=== PATIENT | male | born 1975 | race African-American/Black ===

== ENCOUNTER 2017-09-12 17:31 | Emergency (ER) | payer SELFPAY ==
[2017-09-12] MEDS: IPRATRPIUM/ALBUTEROL 0.5/2.5MG 3 ML NEBU. NEB ×4 (18:19→18:33)
[2017-09-12] MEDS: predniSONE 20 MG TABLET PO ×2 (18:38)
[2017-09-12 18:48] LABS: INFLUENZA A PATIENT NEGATIVE (NEGATIVE); INFLUENZA B PATIENT NEGATIVE (NEGATIVE); OBC FLU VALID
== END 2017-09-12 19:21 | disposition home or self-care (01) ==
LOC: ER 19:21
DX: J20.9 Acute bronchitis, unspecified (principal); I10 Essential (primary) hypertension; F12.10 Cannabis abuse, uncomplicated; Z88.0 Allergy status to penicillin
CPT/HCPCS: 71045; 87804; 87804-59; 94640; 99285-25; J7512; J7620

== ENCOUNTER 2018-07-12 19:29 | Emergency (ER) | payer SELFPAY ==
[~2018-07-12] VITALS: Ht 182.9 cm; Wt 113.4 kg
[~2018-07-12 19:29] MED LIST: ASPI-612 PO; ATOR10TA60 PO; AZIT250T6 PO; GUAI118L20 PO; HYDR12.575 PO; LISI-334 PO; PRED50TA PO; PROAIR HFA8.5 GM INH
[2018-07-12 20:11] VITALS: BP 159/72
[2018-07-12] MEDS ORDERED: ERYT1OIN6 OP (20:35)
[2018-07-12] MEDS ORDERED: CEPH-264 PO (20:35)
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
== END 2018-07-12 20:46 | disposition home or self-care (01) ==
LOC: ER 19:29
DX: H00.011 Hordeolum externum right upper eyelid (principal); L02.01 Cutaneous abscess of face; M27.2 Inflammatory conditions of jaws; I10 Essential (primary) hypertension; E66.9 Obesity, unspecified; Z68.33 Body mass index [BMI] 33.0-33.9, adult; Z88.0 Allergy status to penicillin
CPT/HCPCS: 99283

== ENCOUNTER 2019-05-06 16:14 | Emergency (ER) | payer SELFPAY ==
[~2019-05-06] VITALS: Ht 182.9 cm; Wt 136.1 kg
[~2019-05-06 16:14] MED LIST changes: +ALBU2.5V8 INH; +CEPH-264 PO; +ERYT1OIN6 OP; -PROAIR HFA8.5 GM INH
[2019-05-06] MEDS ORDERED: KETOROLAC 30 MG/ML VIAL. IV ONE (16:30)
[2019-05-06] MEDS ORDERED: ASPIRIN CHEWABLE 81 MG TABLET. PO ONE (16:30)
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
--- NOTE | 2019-05-06 17:14 | RAD ---
Two-view chest dated 05/06/2019. Comparison made to 09/12/2017. CLINICAL INDICATION: Chest pain. FINDINGS: PA and lateral views obtained. Heart and mediastinal contours are stable. Lungs are hypoinflated but otherwise clear. There are calcified right hilar and right paratracheal lymph nodes, unchanged. No pleural effusion or pneumothorax. IMPRESSION: No acute radiographic abnormality. Electronically signed by: Murphy Cohen MD (05/06/2019 5:11 PM) [id number]
[2019-05-06 17:24] LABS: BASO % 1 % (0-3); EOS # 0.1 x10^3/uL (0.0-0.7); EOS % 2 % (0-3); HEMATOCRIT 41.6 % (39.0-53.0); HEMOGLOBIN 13.9 g/dL (13.0-17.5); LYMPH # 0.4 x10^3/uL (1.0-4.8); LYMPH % 7 % (24-48); MEAN CORPUSCULAR HEMOGLOBIN 27 pg (25-35); MEAN CORPUSCULAR HGB CONC 33 g/dL (31-37); MEAN CORPUSCULAR VOLUME 82 fL (79-100); MONO # 0.6 x10^3/uL (0.0-1.1); MONO % 9 % (0-9); NEUT # 5.5 x10^3/uL (1.8-7.7); NEUT % 82 % (31-73); PLATELET COUNT 192 x10^3/uL (140-400); RED BLOOD COUNT 5.09 x10^6/uL (4.30-5.70); RED CELL DISTRIBUTION WIDTH 15.3 % (11.5-14.5); WHITE BLOOD COUNT 6.7 x10^3/uL (4.0-11.0)
[2019-05-06 17:40] LABS: CALCIUM 8.9 mg/dL (8.5-10.1); CREATININE 1.1 mg/dL (0.7-1.3); GFR 88.8; POTASSIUM 4.1 mmol/L (3.5-5.1)
[2019-05-06 17:45] LABS: ALBUMIN 3.4 g/dL (3.4-5.0); ALBUMIN/GLOBULIN RATIO 0.8 (1.0-1.7); TOTAL BILIRUBIN 0.4 mg/dL (0.2-1.0); TOTAL PROTEIN 7.6 g/dL (6.4-8.2)
[2019-05-06] MEDS ORDERED: DICL50TA4 PO (17:58)
[2019-05-06] MEDS ORDERED: CYCL10TA2 PO (17:58)
[2019-05-06 18:02] VITALS: BP 159/93
--- NOTE | 2019-05-07 06:11 | EKG ---
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
== END 2019-05-06 18:20 | disposition home or self-care (01) ==
LOC: ER 16:14
DX: R07.89 Other chest pain (principal); M79.601 Pain in right arm; E78.00 Pure hypercholesterolemia, unspecified; I10 Essential (primary) hypertension; E66.9 Obesity, unspecified; Z68.41 Body mass index [BMI] 40.0-44.9, adult; Z88.0 Allergy status to penicillin
CPT/HCPCS: 36415; 71046; 80053; 83690; 83880; 84484; 85025; 93005; 96374; 99285; J1885

== ENCOUNTER 2019-10-28 00:56 | Observation (INO) | payer SELFPAY ==
[~2019-10-28] VITALS: Ht 182.9 cm; Wt 165.8 kg
[~2019-10-28 00:56] MED LIST changes: +CYCL10TA2 PO; +DICL50TA4 PO
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
[2019-10-28 01:41] LABS: BASO # 0.1 x10^3/uL (0.0-0.2); BASO % 1 % (0-3); EOS # 0.2 x10^3/uL (0.0-0.7); EOS % 2 % (0-3); HEMATOCRIT 36.5 % (39.0-53.0); HEMOGLOBIN 12.2 g/dL (13.0-17.5); LYMPH # 2.1 x10^3/uL (1.0-4.8); LYMPH % 23 % (24-48); MEAN CORPUSCULAR HEMOGLOBIN 28 pg (25-35); MEAN CORPUSCULAR HGB CONC 33 g/dL (31-37); MEAN CORPUSCULAR VOLUME 83 fL (79-100); MONO # 0.9 x10^3/uL (0.0-1.1); MONO % 10 % (0-9); NEUT # 6.1 x10^3/uL (1.8-7.7); NEUT % 65 % (31-73); PLATELET COUNT 229 x10^3/uL (140-400); RED CELL DISTRIBUTION WIDTH 15.3 % (11.5-14.5); WHITE BLOOD COUNT 9.3 x10^3/uL (4.0-11.0)
[2019-10-28 01:50] LABS: CALCIUM 8.9 mg/dL (8.5-10.1); CREATININE 1.1 mg/dL (0.7-1.3); GFR 88.4; POTASSIUM 4.3 mmol/L (3.5-5.1)
[2019-10-28 01:53] LABS: ALBUMIN 3.3 g/dL (3.4-5.0); ALBUMIN/GLOBULIN RATIO 0.8 (1.0-1.7); TOTAL BILIRUBIN 0.3 mg/dL (0.2-1.0); TOTAL PROTEIN 7.3 g/dL (6.4-8.2)
--- NOTE | 2019-10-28 02:12 | RAD ---
Chest AP portable at 0157: Reason for examination: Chest pain and shortness of breath. Comparison is made to previous study dated 05/06/2019. The heart size is borderline enlarged but unchanged. Mediastinum is unremarkable. Lung rose are clear. No acute bony abnormalities are seen. Impression: No acute cardiopulmonary disease. Electronically signed by: Jhoana Thakur MD (10/28/2019 2:10 AM) [id number]
[2019-10-28] MEDS ORDERED: NITROGLYCERIN SUBLINGUAL 0.4 MG BOTTLE OF 25. SL PRN (02:30)
[2019-10-28] MEDS ORDERED: ACETAMINOPHEN 325 MG TABLET. PO PRN (02:30)
[2019-10-28] MEDS ORDERED: ONDANSETRON PF 4 MG/2 ML VIAL. IV PRN (02:30)
[2019-10-28] MEDS ORDERED: FUROSEMIDE 40 MG/4 ML VIAL. IVP ONE ×2 (02:45→13:00)
[2019-10-28] MEDS ORDERED: ASPIRIN CHEWABLE 81 MG TABLET. PO ONE (02:45)
[2019-10-28 03:18] LABS: BILIRUBIN,URINE NEGATIVE (NEG); CLARITY,URINE CLEAR; COLOR,URINE YELLOW; NITRITE,URINE NEGATIVE (NEG); PROTEIN,URINE NEGATIVE (NEG-TRACE)
[2019-10-28 03:23] LABS: BACTERIA,URINE 0 /HPF (0-FEW); RBC,URINE 0 /HPF (0-2); WBC,URINE RARE /HPF (0-4)
[2019-10-28 03:54] VITALS: BP 153/94
--- NOTE | 2019-10-28 06:19 | EKG ---
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
[2019-10-28 07:00] VITALS: BP 130/62
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
[2019-10-28] MEDS ORDERED: FLU VAX QS 2019-20 (36MOS+)/PF 0.5 ML SYRINGE. VAX IM ONE (09:00)
--- NOTE | 2019-10-28 09:52 | NUR ---
SS following for discharge planning. SS reviewed pt chart. Pt is self pay pt. HCFS following for self pay status. Pt is from home and is currently on room air. SS will continue to follow for discharge planning.
[2019-10-28 11:00] VITALS: BP 132/67
[2019-10-28] MEDS ORDERED: KETOROLAC 15 MG/ML VIAL. IVP ONE (11:15)
[2019-10-28] MEDS ORDERED: ALBUTEROL SULFATE 2.5 MG/3 ML NEBU. INH PRN (11:15)
[2019-10-28] MEDS ORDERED: amLODIPine BESYLATE 10 MG TABLET PO SCH (11:30)
[2019-10-28] MEDS ORDERED: ASPIRIN ENTERIC COATED 81 MG TABLET.DR. PO SCH (11:30)
[2019-10-28] MEDS ORDERED: hydroCHLOROthiazide 12.5 MG CAPSULE PO SCH (11:30)
[2019-10-28 11:52] LABS: CHOLESTEROL/HDL RATIO 3.4
[2019-10-28 15:00] VITALS: BP 124/64
--- NOTE | 2019-10-28 15:14 | CARD ---
MR#: [id number] Date of Study: 10/28/2019 Ordering Physician: JOSE DAVID CAMPA, Referring Physician: JOSE DAVID CAMPA, Tech: Latonya Snowden [facility] APPROVED REPORT EXAM: Two-dimensional and M-mode echocardiogram with Doppler and color Doppler. Other Information Quality : Good Technically limited study due to body habitus. INDICATION Chest Pain RISK FACTORS Obesity 2D DIMENSIONS RVDd2.8 (2.9-3.5cm)Left Atrium(2D)3.4 (1.6-4.0cm) IVSd1.4 (0.7-1.1cm)Aortic Root(2D)2.8 (2.0-3.7cm) LVDd4.3 (3.9-5.9cm)LVOT Diameter2.2 (1.8-2.4cm) PWd1.0 (0.7-1.1cm)LVDs3.0 (2.5-4.0cm) FS (%) 28.9 %SV45.4 ml LVEF(%)55.9 (>50%) Aortic Valve AoV Peak Joe.154.8cm/sAoV VTI26.8cm AO Peak GR.9.6mmHgLVOT Peak Joe.141.3cm/s LVOT VTI 27.25cmAO Mean GR.5mmHg CODIE (VMAX)3.65lv7IBR (VTI)3.93cm2 Mitral Valve MV E Ehnrufkm601.8cm/sMV DECEL [id number] MV A Qicdnooa68.3cm/sMV KVM89pr E/A Ratio1.6MVA (PHT)3.50cm2 TDI E/Lateral E'12.6E/Medial E'12.9 Pulmonary Vein S1 Qbhnnwbo58.5cm/sD2 Qloznakz13.3cm/s LEFT VENTRICLE The left ventricle is normal size. There is mild concentric left ventricular hypertrophy. The left ve ntricular systolic function is normal and the ejection fraction is within normal range. The Ejection Fraction is 60-65%. There is normal LV segmental wall motion. The left ventricular diastolic function and filling is normal for age. RIGHT VENTRICLE The right ventricle is normal size. The right ventricular systolic function is normal. ATRIA The left atrium size is normal. The right atrium size is normal. The interatrial septum is intact wit h no evidence for an atrial septal defect or patent foramen ovale as noted on 2-D or Doppler imaging. AORTIC VALVE The aortic valve is normal in structure and function. Doppler and Color Flow revealed no significant aortic regurgitation. There is no significant aortic valvular stenosis. MITRAL VALVE The mitral valve is normal in structure and function. There is no evidence of mitral valve prolapse. There is no mitral valve stenosis. Doppler and Color Flow revealed no mitral valve regurgitation note d. TRICUSPID VALVE The tricuspid valve is normal in structure and function. Doppler and Color Flow revealed no tricuspid valve regurgitation noted. There is no tricuspid valve stenosis. PULMONIC VALVE The pulmonic valve is not well visualized. Doppler and Color Flow revealed no pulmonic valvular regur gitation. There is no pulmonic valvular stenosis. GREAT VESSELS The aortic root is normal in size. The ascending aorta is not well seen. The IVC was not visualized. PERICARDIAL EFFUSION There is no evidence of significant pericardial effusion. Critical Notification Critical Value: No <Conclusion> The left ventricular systolic function is normal and the ejection fraction is within normal range. Th e Ejection Fraction is 60-65%. There is normal LV segmental wall motion. Signed by : Chris Gold, Electronically Approved : 10/28/2019 15:13:52
[2019-10-28 15:38] LABS: BARBITURATES NEG (NEG); BENZODIAZEPINES NEG (NEG); CANNABINOIDS POS (NEG); COCAINE NEG (NEG); METHADONE NEG (NEG); OPIATES NEG (NEG); PHENCYCLIDINE NEG (NEG)
[2019-10-28 15:55] LABS: AMPHETAMINE/METHAMPHETAMINE NEG (NEG)
[2019-10-28] MEDS ORDERED: AMLO10TA8 PO (16:35)
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
--- NOTE | 2019-10-28 18:00 | NUR ---
DISCHARGE INSTRUCTIONS GIVEN, QUESTIONS AND CONCERNS ANSWERED, PATIENT VERBALIZED UNDERSTANDING OF DISCHARGE INFORMATION INCLUDING TAKING ALL MEDICATIONS INSTRUCTED AND FOLLOWING UP WITH IS PRIMARY PROVIDER IN 1-2 WEEKS, SALINE LOCK REMOVED FROM PATIENTS' RIGHT AC AREA PER HAIR PREPARER, PATIENT TOLERATED WITHOUT COMPLAINTS/COMPLICATIONS.
--- NOTE | 2019-10-28 18:25 | NUR ---
PATIENT LEAVES THE UNIT PER W/C, EMOTIONAL SUPPORT GIVEN, FOLLOW UP APPOINTMENTS ENCOURAGED.
[2019-10-28] MEDS ORDERED: ATORVASTATIN CALCIUM 10 MG TABLET. PO SCH (21:00)
[2019-10-28] MEDS ORDERED: ATORVASTATIN CALCIUM 20 MG TABLET PO SCH (21:00)
[2019-10-29] MEDS ORDERED: LISINOPRIL 20 MG TABLET PO SCH (09:00)
== END 2019-10-28 18:25 | disposition home or self-care (01) ==
LOC: ER 00:56 → 6 SOUTH 02:12
PROVIDERS: ADMIT Internal Medicine; ATTEND Internal Medicine
DX: R07.89 Other chest pain (principal); I11.0 Hypertensive heart disease with heart failure; I50.31 Acute diastolic (congestive) heart failure; R06.00 Dyspnea, unspecified; E78.00 Pure hypercholesterolemia, unspecified; E66.01 Morbid (severe) obesity due to excess calories; F12.10 Cannabis abuse, uncomplicated; F14.10 Cocaine abuse, uncomplicated; F17.200 Nicotine dependence, unspecified, uncomplicated; Z79.82 Long term (current) use of aspirin
CPT/HCPCS: 36415; 71045; 80053; 80061; 80307; 81001; 83880; 84443; 84484; 85025; 90471; 90686; 93005; 93306; 96374; 96375; 99285; G0378; J1885; J1940; G0379

== ENCOUNTER 2020-06-30 22:13 | Emergency (ER) | payer SELFPAY ==
[~2020-06-30] VITALS: Ht 182.9 cm; Wt 168.0 kg
[~2020-06-30 22:13] MED LIST changes: +AMLO-187 PO; -ASPI-612 PO; +ASPI-886 PO
[2020-06-30 22:48] VITALS: BP 122/74
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
[2020-07-01] MEDS ORDERED: DIPH,PERTUSS(ACELL),TET VAC/PF 0.5 ML SYRINGE. VAX IM ONE (02:00)
== END 2020-07-01 01:45 | disposition home or self-care (01) ==
LOC: ER 22:13
DX: S61.512A Laceration without foreign body of left wrist, initial encounter (principal); E78.00 Pure hypercholesterolemia, unspecified; I10 Essential (primary) hypertension; F12.90 Cannabis use, unspecified, uncomplicated; E66.9 Obesity, unspecified; Z68.43 Body mass index [BMI] 50.0-59.9, adult; Z98.890 Other specified postprocedural states; Z87.891 Personal history of nicotine dependence; Z88.0 Allergy status to penicillin; Z88.6 Allergy status to analgesic agent; Z88.8 Allergy status to other drugs, medicaments and biological substances; Y29.XXXA Contact with blunt object, undetermined intent, initial encounter; Y93.89 Activity, other specified; Y92.89 Other specified places as the place of occurrence of the external cause; Y99.0 Civilian activity done for income or pay
CPT/HCPCS: 12001; 99282

== ENCOUNTER 2021-06-09 09:29 | Inpatient (IN) | payer SELFPAY ==
[~2021-06-09] VITALS: Ht 182.9 cm; Wt 160.7 kg
[~2021-06-09 09:29] MED LIST changes: +CYCL10TA19 PO; -CYCL10TA2 PO; -LISI-334 PO; +LISI20TA18 PO
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
[2021-06-09] MEDS: NITROGLYCERIN SUBLINGUAL 0.4 MG BOTTLE OF 25. SL PRN ×3 (09:56→11:34)
[2021-06-09] MEDS ORDERED: ASPIRIN CHEWABLE 81 MG TABLET. PO ONE (10:00)
[2021-06-09 10:11] LABS: BASO % 0 % (0-3); EOS # 0.1 x10^3/uL (0.0-0.7); EOS % 2 % (0-3); HEMATOCRIT 45.5 % (39.0-53.0); HEMOGLOBIN 14.9 g/dL (13.0-17.5); LYMPH # 1.4 x10^3/uL (1.0-4.8); LYMPH % 16 % (24-48); MEAN CORPUSCULAR HEMOGLOBIN 27 pg (25-35); MEAN CORPUSCULAR HGB CONC 33 g/dL (31-37); MEAN CORPUSCULAR VOLUME 82 fL (79-100); MONO # 0.5 x10^3/uL (0.0-1.1); MONO % 6 % (0-9); NEUT # 6.9 x10^3/uL (1.8-7.7); NEUT % 77 % (31-73); PLATELET COUNT 251 x10^3/uL (140-400); RED BLOOD COUNT 5.56 x10^6/uL (4.30-5.70); RED CELL DISTRIBUTION WIDTH 15.8 % (11.5-14.5); WHITE BLOOD COUNT 9.1 x10^3/uL (4.0-11.0)
[2021-06-09 10:20] LABS: CALCIUM 8.6 mg/dL (8.5-10.1); GFR 98.2; POTASSIUM 4.2 mmol/L (3.5-5.1)
--- NOTE | 2021-06-09 10:25 | RAD ---
Single view of the chest. 06/09/2021 9:54 AM Indication: Reason: CHEST PAIN Comparison: Chest radiograph October 28, 2019 Findings: I interstitial coarsening is seen with areas of peribronchial thickening/cuffing. There is no hyperinflation. Findings could represent a mild or early atypical/viral infectious process, includ ing bronchiolitis. Mild edema is possible. Calcified lymph node in the right hilum is stable. Heart s ize is top normal. No acute osseous changes are seen. Impression: Mild interstitial coarsening with peribronchial thickening. Differential considerations i nclude mild edema versus atypical/viral process Electronically signed by: Tony Champion MD (06/09/2021 10:22 AM) [id number]
[2021-06-09 10:26] LABS: ALBUMIN 3.2 g/dL (3.4-5.0); ALBUMIN/GLOBULIN RATIO 0.8 (1.0-1.7); TOTAL BILIRUBIN 0.6 mg/dL (0.2-1.0); TOTAL PROTEIN 7.4 g/dL (6.4-8.2)
--- NOTE | 2021-06-09 10:30 | EKG ---
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
[2021-06-09 10:57] LABS: BARBITURATES NEG (NEG); BENZODIAZEPINES NEG (NEG); CANNABINOIDS POS (NEG); COCAINE POS (NEG); METHADONE NEG (NEG); OPIATES NEG (NEG); PHENCYCLIDINE POS (NEG)
[2021-06-09 10:58] LABS: AMPHETAMINE/METHAMPHETAMINE NEG (NEG)
[2021-06-09] MEDS ORDERED: NITROGLYCERIN SUBLINGUAL 0.4 MG BOTTLE OF 25. SL PRN (11:00)
[2021-06-09] MEDS ORDERED: FUROSEMIDE 40 MG/4 ML VIAL. IVP ONE (11:00)
[2021-06-09] MEDS ORDERED: ACETAMINOPHEN 325 MG TABLET. PO PRN (11:00)
--- NOTE | 2021-06-09 13:00 | NUR ---
Patient arrived to room 660 from ER at 1300. Patient A&OX4. VSS. The patient, MILDRED CHU, 45 y/o, M admitted by TIANA FLOREZ MD, was given written information regarding hospital policies, unit procedures and contact persons. Valuables were checked and noted. ERWIN Sands helped with admission questions. Will continue to monitor.
[2021-06-09 13:05] VITALS: BP 157/77
[2021-06-09] MEDS ORDERED: guaiFENesin/CODEINE 100mg/10mg 5 ML LIQUID PO PRN (14:30)
[2021-06-09] MEDS ORDERED: ALBUTEROL SULFATE 2.5 MG/3 ML NEBU. INH PRN (14:30)
[2021-06-09 15:00] VITALS: BP 170/84
[2021-06-09] MEDS ORDERED: FLU VACC QUAD 21-22 (6MOS+) PF 0.5 ML SYRINGE. VAX IM ONE (15:00)
--- NOTE | 2021-06-09 15:30 | PDOC1 ---
History and Physical Date of Admission Date of Admission DATE: 06/09/21 TIME: 15:30 Identification/Chief Complaint Chief Complaint chestpain Source Source: Chart review, Patient History of Present Illness History of Present Illness MR. Herzog, is a 45-year-old male presenting for chest pain. he felt weak and nauseated at work yesterday, then had chest pain, chest pain that radiated to left shoulder. 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 TOday, he was unable to go to work, chest pain with pressure, throbbing pain, pain 8/10, is better now He was here 4 years ago for chest pain, has not followed with his primary care in years, BP has run high since high school. He is aware of problemw ith tobacco abuse, high blood pressure, high cholesterol, obesity and prior use of cocaine Past Medical History Cardiovascular: HTN Pulmonary: No pertinent hx CENTRAL NERVOUS SYSTEM: Other GI: Other Heme/Onc: No pertinent hx Hepatobiliary: No pertinent hx Psych: No pertinent hx, Other Musculoskeletal: Other Rheumatologic: No pertinent hx Infectious disease: No pertinent hx Renal/: No pertinent hx Endocrine: No pertinent hx Past Surgical History Past Surgical History: Other Family History Family History: Heart Disease Social History Smoke: No ALCOHOL: none Drugs: Cocaine, Marijuana Current Problem List Problem List Problems Medical Problems: (1) (HFpEF) heart failure with preserved ejection fraction Status: Acute Current Medications Current Medications Current Medications Aspirin (Aspirin Chewable) 324 mg 1X ONCE PO Last administered on 06/09/21at 09:55; Start 06/09/21 at 10:00; Stop 06/09/21 at 10:01; Status DC Nitroglycerin (Nitrostat) 0.4 mg PRN Q5MIN PRN SL CP RATING > 1/10 Last administered on 06/09/21at 11:34; Start 06/09/21 at 10:00; Stop 06/09/21 at 13:47; Status DC Furosemide (Lasix) 40 mg 1X ONCE IVP Last administered on 06/09/21at 11:34; Start 06/09/21 at 11:00; Stop 06/09/21 at 11:01; Status DC Acetaminophen (Tylenol) 650 mg PRN Q4HRS PRN PO FEVER > 100.3'F; Start 06/09/21 at 11:00; Stop 06/10/21 at 10:59 Nitroglycerin (Nitrostat) 0.4 mg PRN Q5MIN PRN SL CHEST PAIN; Start 06/09/21 at 11:00; Stop 06/10/21 at 10:59 Influenza Virus Vaccine Quadrival (Flulaval Quad Syringe) 0.5 ml ONCE ONCE VAX IM ; Start 06/09/21 at 15:00; Stop 06/09/21 at 15:01; Status DC Albuterol Sulfate (Ventolin Neb Soln) 2.6 mg PRN Q6HRS PRN INH SHORTNESS OF BREATH; Start 06/09/21 at 14:30 Amlodipine Besylate (Norvasc) 10 mg DAILY PO ; Start 06/09/21 at 15:00 Aspirin (Ecotrin) 81 mg DAILYWBKFT PO ; Start 06/10/21 at 08:00 Atorvastatin Calcium (Lipitor) 10 mg QHS PO ; Start 06/09/21 at 21:00 Guaifenesin/ Codeine Phosphate (Robitussin Ac) 5 ml PRN Q6HRS PRN PO COUGH; Start 06/09/21 at 14:30 Active Scripts Active Amlodipine Besylate 10 Mg Tablet 10 Mg PO DAILY 90 Days Diclofenac Sodium 50 Mg Tablet. 1 Tab PO BID Cheratussin Ac Syrup (Guaifenesin/Codeine Phosphate) 118 Ml Liquid 5 Ml PO PRN Q6HRS 5 Days Proair Hfa Inhaler (Albuterol Sulfate) 8.5 Gm Hfa.aer.ad 1 Puff INH PRN Q6HRS VA N Atorvastatin Calcium 10 Mg Tablet 10 Mg PO QHS 30 Days Aspirin Ec (Aspirin) 81 Mg Tablet.dr 81 Mg PO DAILYWBKFT 30 Days Allergies Allergies: Coded Allergies: Penicillins (Verified Allergy, Severe, Anaphylaxis, 06/25/17) lisinopril (Verified Allergy, Severe, 10/28/19) ROS General: No: Chills, Night Sweats, Fatigue, Malaise, Appetite, Other PSYCHOLOGICAL ROS: No: Anxiety, Behavioral Disorder, Concentration difficultie, Decreased libido, Depression, Disorientation, Hallucinations, Hostility, Irritablity, Memory difficulties, Mood Swings, Obsessive thoughts, Physical abuse, Sexual abuse, Sleep disturbances, Suicidal ideation, Other Eyes: No Blurry vision, No Decreased vision, No Double vision, No Dry eyes, No Excessive tearing, No Eye Pain, No Itchy Eyes, No Loss of vision, No Photophobia, No Scotomata, No Uses contacts, No Uses glasses, No Other HEENT: No: Heacaches, Visual Changes, Hearing change, Nasal congestion, Nasal discharge, Oral lesions, Sinus pain, Sore Throat, Epistaxis, Sneezing, Snoring, Tinnitus, Vertigo, Vocal changes, Other Respiratory: No: Cough, Hemoptysis, Orthopnea, Pleuritic Pain, Shortness of breath, SOB with excertion, Sputum Changes, Stridor, Tachypnea, Wheezing, Other Cardiovascular: yes Chest Pain; No Palpitations, No Orthopnea, No Paroxysmal Noc. Dyspnea, No Edema, No Lt Headedness, No Other Gastrointestinal: Yes Nausea Musculoskeletal: Yes Joint Stiffness; No Gait Disturbance, No Joint Pain, No Joint Swelling, No Muscle Pain, No Muscular Weakness, No Pain In:, No Swelling In:, No Other Neurological: No Behavorial Changes, No Bowel/Bladder ControlChng, No Confusio n, No Dizziness, No Gait Disturbance, No Headaches, No Impaired Coord/balance, No Memory Loss, No Numbness/Tingling, No Seizures, No Speech Problems, No Tremors, No Visual Changes, No Weakness, No Other Skin: No Dry Skin, No Eczema, No Hair Changes, No Lumps, No Mole Changes, No Mottling, No Nail Changes, No Pruritus, No Rash, No Skin Lesion Changes, No Other, No Acne Physical Exam General: Alert, Cooperative, No acute distress HEENT: Atraumatic, PERRLA, Mucous membr. moist/pink Lungs: Clear to auscultation Heart: S1S2, RRR Extremities: No cyanosis, No edema Skin: No rashes, No significant lesion Neuro: Normal gait, Normal speech, Normal tone, Sensation intact Psych/Mental Status: Mental status NL, Mood NL Vitals Vitals Vital Signs Date Time Temp Pulse Resp B/P (MAP) Pulse Ox O2 Delivery O2 Flow Rate FiO2 06/09/21 13:30 Room Air 06/09/21 13:05 97.2 79 20 157/77 (103) 98 97.2 Labs Labs Laboratory Tests Test 06/09/21 09:40 06/09/21 10:27 06/09/21 12:46 White Blood Count 9.1 x10^3/uL (4.0-11.0) Red Blood Count 5.56 x10^6/uL (4.30-5.70) Hemoglobin 14.9 g/dL (13.0-17.5) Hematocrit 45.5 % (39.0-53.0) Mean Corpuscular Volume 82 fL (79-100) Mean Corpuscular Hemoglobin 27 pg (25-35) Mean Corpuscular Hemoglobin Concent 33 g/dL (31-37) Red Cell Distribution Width 15.8 % (11.5-14.5) Platelet Count 251 x10^3/uL (140-400) Neutrophils (%) (Auto) 77 % (31-73) Lymphocytes (%) (Auto) 16 % (24-48) Monocytes (%) (Auto) 6 % (0-9) Eosinophils (%) (Auto) 2 % (0-3) Basophils (%) (Auto) 0 % (0-3) Neutrophils # (Auto) 6.9 x10^3/uL (1.8-7.7) Lymphocytes # (Auto) 1.4 x10^3/uL (1.0-4.8) Monocytes # (Auto) 0.5 x10^3/uL (0.0-1.1) Eosinophils # (Auto) 0.1 x10^3/uL (0.0-0.7) Basophils # (Auto) 0.0 x10^3/uL (0.0-0.2) Sodium Level 139 mmol/L (136-145) Potassium Level 4.2 mmol/L (3.5-5.1) Chloride Level 101 mmol/L (98-107) Carbon Dioxide Level 31 mmol/L (21-32) Anion Gap 7 (6-14) Blood Urea Nitrogen 11 mg/dL (8-26) Creatinine 1.0 mg/dL (0.7-1.3) Estimated GFR (Cockcroft-Gault) 98.2 BUN/Creatinine Ratio 11 (6-20) Glucose Level 104 mg/dL (70-99) Calcium Level 8.6 mg/dL (8.5-10.1) Total Bilirubin 0.6 mg/dL (0.2-1.0) Aspartate Amino Transf (AST/SGOT) 15 U/L (15-37) Alanine Aminotransferase (ALT/SGPT) 22 U/L (16-63) Alkaline Phosphatase 69 U/L (46-116) Troponin I High Sensitivity 9 ng/L (4-75) UF-Qnc-C-Type Natriuretic Peptide 447 pg/mL (0-124) Total Protein 7.4 g/dL (6.4-8.2) Albumin 3.2 g/dL (3.4-5.0) Albumin/Globulin Ratio 0.8 (1.0-1.7) Lipase 40 U/L (73-393) Urine Opiates Screen Neg (NEG) Urine Methadone Screen Neg (NEG) Urine Barbiturates Neg (NEG) Urine Phencyclidine Screen Pos (NEG) Urine Amphetamine/Methamphetamine Neg (NEG) Urine Benzodiazepines Screen Neg (NEG) Urine Cocaine Screen Pos (NEG) Urine Cannabinoids Screen Pos (NEG) Urine Ethyl Alcohol Neg (NEG) SARS-CoV-2 Antigen (Rapid) Negative (NEGATIVE) Laboratory Tests Test 06/09/21 09:40 06/09/21 10:27 06/09/21 12:46 White Blood Count 9.1 x10^3/uL (4.0-11.0) Red Blood Count 5.56 x10^6/uL (4.30-5.70) Hemoglobin 14.9 g/dL (13.0-17.5) Hematocrit 45.5 % (39.0-53.0) Mean Corpuscular Volume 82 fL (79-100) Mean Corpuscular Hemoglobin 27 pg (25-35) Mean Corpuscular Hemoglobin Concent 33 g/dL (31-37) Red Cell Distribution Width 15.8 % (11.5-14.5) Platelet Count 251 x10^3/uL (140-400) Neutrophils (%) (Auto) 77 % (31-73) Lymphocytes (%) (Auto) 16 % (24-48) Monocytes (%) (Auto) 6 % (0-9) Eosinophils (%) (Auto) 2 % (0-3) Basophils (%) (Auto) 0 % (0-3) Neutrophils # (Auto) 6.9 x10^3/uL (1.8-7.7) Lymphocytes # (Auto) 1.4 x10^3/uL (1.0-4.8) Monocytes # (Auto) 0.5 x10^3/uL (0.0-1.1) Eosinophils # (Auto) 0.1 x10^3/uL (0.0-0.7) Basophils # (Auto) 0.0 x10^3/uL (0.0-0.2) Sodium Level 139 mmol/L (136-145) Potassium Level 4.2 mmol/L (3.5-5.1) Chloride Level 101 mmol/L (98-107) Carbon Dioxide Level 31 mmol/L (21-32) Anion Gap 7 (6-14) Blood Urea Nitrogen 11 mg/dL (8-26) Creatinine 1.0 mg/dL (0.7-1.3) Estimated GFR (Cockcroft-Gault) 98.2 BUN/Creatinine Ratio 11 (6-20) Glucose Level 104 mg/dL (70-99) Calcium Level 8.6 mg/dL (8.5-10.1) Total Bilirubin 0.6 mg/dL (0.2-1.0) Aspartate Amino Transf (AST/SGOT) 15 U/L (15-37) Alanine Aminotransferase (ALT/SGPT) 22 U/L (16-63) Alkaline Phosphatase 69 U/L (46-116) Troponin I High Sensitivity 9 ng/L (4-75) ZB-Oyt-W-Type Natriuretic Peptide 447 pg/mL (0-124) Total Protein 7.4 g/dL (6.4-8.2) Albumin 3.2 g/dL (3.4-5.0) Albumin/Globulin Ratio 0.8 (1.0-1.7) Lipase 40 U/L (73-393) Urine Opiates Screen Neg (NEG) Urine Methadone Screen Neg (NEG) Urine Barbiturates Neg (NEG) Urine Phencyclidine Screen Pos (NEG) Urine Amphetamine/Methamphetamine Neg (NEG) Urine Benzodiazepines Screen Neg (NEG) Urine Cocaine Screen Pos (NEG) Urine Cannabinoids Screen Pos (NEG) Urine Ethyl Alcohol Neg (NEG) SARS-CoV-2 Antigen (Rapid) Negative (NEGATIVE) VTE Prophylaxis Ordered VTE Prophylaxis Devices: No VTE Pharmacological Prophylaxi: Yes Assessment/Plan Assessment/Plan chest pain, angina, toxic encephalopathy, was not Aware of PCP exposure, could have been in recent THC use Obese, BMI 48 Acccelerated HTn, started NOrvac, HANANE-i allergy, B-monica contraindicated with recent cocaine use Not unvaccinated against COVID-19 Justifications for Admission Other Justification TIANA FLOREZ MD Jun 09, 2021 15:30
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
[2021-06-09 16:46] LABS: CHOLESTEROL/HDL RATIO 4.8
[2021-06-09] MEDS ORDERED: TRAM100T36 PO (17:55)
[2021-06-09] MEDS ORDERED: POTA-112 PO (17:55)
[2021-06-09] MEDS ORDERED: LOSA50TA15 PO (17:55)
[2021-06-09 19:00] VITALS: BP 144/67
[2021-06-09] MEDS ORDERED: traZODone 50 MG TABLET. PO PRN (19:30)
[2021-06-09] MEDS ORDERED: ATORVASTATIN CALCIUM 10 MG TABLET. PO SCH (21:00)
[2021-06-09 23:00] VITALS: BP 164/78
[2021-06-10 03:00] VITALS: BP 164/70
[2021-06-10 07:28] LABS: BASO % 1 % (0-3); EOS # 0.2 x10^3/uL (0.0-0.7); EOS % 3 % (0-3); HEMOGLOBIN 14.8 g/dL (13.0-17.5); LYMPH # 1.2 x10^3/uL (1.0-4.8); LYMPH % 14 % (24-48); MEAN CORPUSCULAR HEMOGLOBIN 26 pg (25-35); MEAN CORPUSCULAR HGB CONC 32 g/dL (31-37); MEAN CORPUSCULAR VOLUME 83 fL (79-100); MONO # 0.7 x10^3/uL (0.0-1.1); MONO % 8 % (0-9); NEUT # 6.5 x10^3/uL (1.8-7.7); NEUT % 75 % (31-73); PLATELET COUNT 223 x10^3/uL (140-400); RED BLOOD COUNT 5.65 x10^6/uL (4.30-5.70); RED CELL DISTRIBUTION WIDTH 15.8 % (11.5-14.5); WHITE BLOOD COUNT 8.7 x10^3/uL (4.0-11.0)
[2021-06-10 08:00] LABS: ALBUMIN/GLOBULIN RATIO 0.6 (1.0-1.7); CALCIUM 8.9 mg/dL (8.5-10.1); CREATININE 1.2 mg/dL (0.7-1.3); GFR 79.6; TOTAL BILIRUBIN 0.5 mg/dL (0.2-1.0); TOTAL PROTEIN 7.8 g/dL (6.4-8.2)
[2021-06-10] MEDS ORDERED: ASPIRIN ENTERIC COATED 81 MG TABLET.DR. PO SCH (08:00)
[2021-06-10 08:35] VITALS: BP 141/64
[2021-06-10] MEDS ORDERED: LOSARTAN POTASSIUM 50 MG TABLET. PO SCH (09:00)
[2021-06-10] MEDS ORDERED: AMLO-187 PO (10:59)
--- NOTE | 2021-06-10 11:05 | PDOC3 ---
Discharge Summary Visit Information Date of Admission: Jun 09, 2021 Date of Discharge: Jun 10, 2021 Final Diagnosis Accelerated htn chest pain, stable angina morbid obeisty, BMI 48 Problems Medical Problems: (1) (HFpEF) heart failure with preserved ejection fraction Status: Acute Brief Hospital Course Allergies Allergies Coded Allergies Type Severity Reaction Last Updated Verified Penicillins Allergy Severe Anaphylaxis 06/25/17 Yes lisinopril Allergy Severe 10/28/19 Yes Vital Signs Vital Signs Date Time Temp Pulse Resp B/P (MAP) Pulse Ox O2 Delivery O2 Flow Rate FiO2 06/10/21 09:36 83 141/64 06/10/21 08:35 98.1 18 94 Room Air 98.1 Lab Results Laboratory Tests Test 06/09/21 09:40 06/09/21 10:27 06/09/21 12:46 06/09/21 15:15 White Blood Count 9.1 x10^3/uL (4.0-11.0) Red Blood Count 5.56 x10^6/uL (4.30-5.70) Hemoglobin 14.9 g/dL (13.0-17.5) Hematocrit 45.5 % (39.0-53.0) Mean Corpuscular Volume 82 fL (79-100) Mean Corpuscular Hemoglobin 27 pg (25-35) Mean Corpuscular Hemoglobin Concent 33 g/dL (31-37) Red Cell Distribution Width 15.8 % (11.5-14.5) Platelet Count 251 x10^3/uL (140-400) Neutrophils (%) (Auto) 77 % (31-73) Lymphocytes (%) (Auto) 16 % (24-48) Monocytes (%) (Auto) 6 % (0-9) Eosinophils (%) (Auto) 2 % (0-3) Basophils (%) (Auto) 0 % (0-3) Neutrophils # (Auto) 6.9 x10^3/uL (1.8-7.7) Lymphocytes # (Auto) 1.4 x10^3/uL (1.0-4.8) Monocytes # (Auto) 0.5 x10^3/uL (0.0-1.1) Eosinophils # (Auto) 0.1 x10^3/uL (0.0-0.7) Basophils # (Auto) 0.0 x10^3/uL (0.0-0.2) Sodium Level 139 mmol/L (136-145) Potassium Level 4.2 mmol/L (3.5-5.1) Chloride Level 101 mmol/L (98-107) Carbon Dioxide Level 31 mmol/L (21-32) Anion Gap 7 (6-14) Blood Urea Nitrogen 11 mg/dL (8-26) Creatinine 1.0 mg/dL (0.7-1.3) Estimated GFR (Cockcroft-Gault) 98.2 BUN/Creatinine Ratio 11 (6-20) Glucose Level 104 mg/dL (70-99) Calcium Level 8.6 mg/dL (8.5-10.1) Total Bilirubin 0.6 mg/dL (0.2-1.0) Aspartate Amino Transf (AST/SGOT) 15 U/L (15-37) Alanine Aminotransferase (ALT/SGPT) 22 U/L (16-63) Alkaline Phosphatase 69 U/L (46-116) Troponin I High Sensitivity 9 ng/L (4-75) 7 ng/L (4-75) RD-[id number]-Type Natriuretic Peptide 447 pg/mL (0-124) Total Protein 7.4 g/dL (6.4-8.2) Albumin 3.2 g/dL (3.4-5.0) Albumin/Globulin Ratio 0.8 (1.0-1.7) Triglycerides Level 109 mg/dL (0-150) Cholesterol Level 217 mg/dL (0-200) LDL Cholesterol, Calculated 150 mg/dL (0-100) VLDL Cholesterol, Calculated 22 mg/dL (0-40) Non-HDL Cholesterol Calculated 172 mg/dL (0-129) HDL Cholesterol 45 mg/dL (40-60) Cholesterol/HDL Ratio 4.8 Lipase 40 U/L (73-393) Urine Opiates Screen Neg (NEG) Urine Methadone Screen Neg (NEG) Urine Barbiturates Neg (NEG) Urine Phencyclidine Screen Pos (NEG) Urine Amphetamine/Methamphetamine Neg (NEG) Urine Benzodiazepines Screen Neg (NEG) Urine Cocaine Screen Pos (NEG) Urine Cannabinoids Screen Pos (NEG) Urine Ethyl Alcohol Neg (NEG) SARS-CoV-2 Antigen (Rapid) Negative (NEGATIVE) Test 06/09/21 22:30 06/10/21 05:55 06/10/21 06:15 Troponin I High Sensitivity 8 ng/L (4-75) Sodium Level 139 mmol/L (136-145) Potassium Level 4.0 mmol/L (3.5-5.1) Chloride Level 100 mmol/L (98-107) Carbon Dioxide Level 33 mmol/L (21-32) Anion Gap 6 (6-14) Blood Urea Nitrogen 13 mg/dL (8-26) Creatinine 1.2 mg/dL (0.7-1.3) Estimated GFR (Cockcroft-Gault) 79.6 BUN/Creatinine Ratio 11 (6-20) Glucose Level 98 mg/dL (70-99) Calcium Level 8.9 mg/dL (8.5-10.1) Total Bilirubin 0.5 mg/dL (0.2-1.0) Aspartate Amino Transf (AST/SGOT) 17 U/L (15-37) Alanine Aminotransferase (ALT/SGPT) 24 U/L (16-63) Alkaline Phosphatase 62 U/L (46-116) Total Protein 7.8 g/dL (6.4-8.2) Albumin 3.0 g/dL (3.4-5.0) Albumin/Globulin Ratio 0.6 (1.0-1.7) White Blood Count 8.7 x10^3/uL (4.0-11.0) Red Blood Count 5.65 x10^6/uL (4.30-5.70) Hemoglobin 14.8 g/dL (13.0-17.5) Hematocrit 47.0 % (39.0-53.0) Mean Corpuscular Volume 83 fL (79-100) Mean Corpuscular Hemoglobin 26 pg (25-35) Mean Corpuscular Hemoglobin Concent 32 g/dL (31-37) Red Cell Distribution Width 15.8 % (11.5-14.5) Platelet Count 223 x10^3/uL (140-400) Neutrophils (%) (Auto) 75 % (31-73) Lymphocytes (%) (Auto) 14 % (24-48) Monocytes (%) (Auto) 8 % (0-9) Eosinophils (%) (Auto) 3 % (0-3) Basophils (%) (Auto) 1 % (0-3) Neutrophils # (Auto) 6.5 x10^3/uL (1.8-7.7) Lymphocytes # (Auto) 1.2 x10^3/uL (1.0-4.8) Monocytes # (Auto) 0.7 x10^3/uL (0.0-1.1) Eosinophils # (Auto) 0.2 x10^3/uL (0.0-0.7) Basophils # (Auto) 0.0 x10^3/uL (0.0-0.2) Thyroid Stimulating Hormone (TSH) 0.904 uIU/mL (0.358-3.74) Laboratory Tests Test 06/09/21 12:46 06/09/21 15:15 06/09/21 22:30 06/10/21 05:55 SARS-CoV-2 Antigen (Rapid) Negative (NEGATIVE) Troponin I High Sensitivity 7 ng/L (4-75) 8 ng/L (4-75) Sodium Level 139 mmol/L (136-145) Potassium Level 4.0 mmol/L (3.5-5.1) Chloride Level 100 mmol/L (98-107) Carbon Dioxide Level 33 mmol/L (21-32) Anion Gap 6 (6-14) Blood Urea Nitrogen 13 mg/dL (8-26) Creatinine 1.2 mg/dL (0.7-1.3) Estimated GFR (Cockcroft-Gault) 79.6 BUN/Creatinine Ratio 11 (6-20) Glucose Level 98 mg/dL (70-99) Calcium Level 8.9 mg/dL (8.5-10.1) Total Bilirubin 0.5 mg/dL (0.2-1.0) Aspartate Amino Transf (AST/SGOT) 17 U/L (15-37) Alanine Aminotransferase (ALT/SGPT) 24 U/L (16-63) Alkaline Phosphatase 62 U/L (46-116) Total Protein 7.8 g/dL (6.4-8.2) Albumin 3.0 g/dL (3.4-5.0) Albumin/Globulin Ratio 0.6 (1.0-1.7) Test 06/10/21 06:15 White Blood Count 8.7 x10^3/uL (4.0-11.0) Red Blood Count 5.65 x10^6/uL (4.30-5.70) Hemoglobin 14.8 g/dL (13.0-17.5) Hematocrit 47.0 % (39.0-53.0) Mean Corpuscular Volume 83 fL (79-100) Mean Corpuscular Hemoglobin 26 pg (25-35) Mean Corpuscular Hemoglobin Concent 32 g/dL (31-37) Red Cell Distribution Width 15.8 % (11.5-14.5) Platelet Count 223 x10^3/uL (140-400) Neutrophils (%) (Auto) 75 % (31-73) Lymphocytes (%) (Auto) 14 % (24-48) Monocytes (%) (Auto) 8 % (0-9) Eosinophils (%) (Auto) 3 % (0-3) Basophils (%) (Auto) 1 % (0-3) Neutrophils # (Auto) 6.5 x10^3/uL (1.8-7.7) Lymphocytes # (Auto) 1.2 x10^3/uL (1.0-4.8) Monocytes # (Auto) 0.7 x10^3/uL (0.0-1.1) Eosinophils # (Auto) 0.2 x10^3/uL (0.0-0.7) Basophils # (Auto) 0.0 x10^3/uL (0.0-0.2) Thyroid Stimulating Hormone (TSH) 0.904 uIU/mL (0.358-3.74) Brief Hospital Course Mr. Herzog is a 45 old obese male, admit with chest pain, fatigue. Isolated for COVID, PUI, was still pending at [place] accel htn on amdit, r/o ACS done, Novasc added, BP better, he felt improved no sign of sepsis on DC< DC home Discharge Information Condition at Discharge: Improved Follow Up: Weeks Disposition/Orders: D/C to Home Scheduled Amlodipine Besylate (Amlodipine Besylate) 10 Mg Tablet, 10 MG PO DAILY for htn, #30 Ref 2 Prescribed by: TIANA FLOREZ on 06/10/21 1059 Losartan Potassium (Losartan Potassium) 50 Mg Tablet, 1 TAB PO DAILY for HTN, (Reported) Entered as Reported by: BENEDICTO NIELSON on 06/09/211754 Last Action: Continued on 06/09/211923 by JOSE DAVID CAMPA MD Discontinued Medications Potassium Chloride (Klor-Con 10) 10 Meq Tablet.er, 1 TAB PO DAILY for , (Reported) Entered as Reported by: BENEDICTO NIELSON on 06/09/211754 Last Action: New Order on 06/09/211754 by BENEDICTO NIELSON Tramadol HCl (Tramadol HCl) 100 Mg Tablet, 1 TAB PO HS for insomnia, (Reported) Entered as Reported by: BENEDICTO NIELSON on 06/09/211754 Last Action: New Order on 06/09/211754 by BENEDICTO NIELSON Patient Instructions Patient Instructions f/u primary care, Face to face discussion 28 min Justicifation of Admission Dx: Justifications for Admission: Justification of Admission Dx: No (obs) TIANA FLOREZ MD Jun 10, 2021 11:05
[2021-06-10] MEDS ORDERED: ASPI-886 PO (11:11)
[2021-06-10] MEDS ORDERED: ATOR20TA PO (11:11)
[2021-06-10 11:14] VITALS: BP 146/98
--- NOTE | 2021-06-10 11:19 | PDOC ---
CARDIO Progress Notes Date and Time Date of Service 06/10/2021 Time of Evaluation 1100 Vitals Vitals Vital Signs Date Time Temp Pulse Resp B/P (MAP) Pulse Ox O2 Delivery O2 Flow Rate FiO2 06/10/21 09:36 83 141/64 06/10/21 08:35 98.1 18 94 Room Air 98.1 Weight Weight [ ] Input and Output Intake and Output Intake and Output 06/10/21 07:00 Intake Total 620 ml Output Total 775 ml Balance -155 ml Intake Oral 620 ml Output Urine Total 775 ml # Voids 2 Laboratory Labs Laboratory Tests Test 06/09/21 12:46 06/09/21 15:15 06/09/21 22:30 06/10/21 05:55 SARS-CoV-2 Antigen (Rapid) Negative (NEGATIVE) Troponin I High Sensitivity 7 ng/L (4-75) 8 ng/L (4-75) Sodium Level 139 mmol/L (136-145) Potassium Level 4.0 mmol/L (3.5-5.1) Chloride Level 100 mmol/L (98-107) Carbon Dioxide Level 33 mmol/L (21-32) Anion Gap 6 (6-14) Blood Urea Nitrogen 13 mg/dL (8-26) Creatinine 1.2 mg/dL (0.7-1.3) Estimated GFR (Cockcroft-Gault) 79.6 BUN/Creatinine Ratio 11 (6-20) Glucose Level 98 mg/dL (70-99) Calcium Level 8.9 mg/dL (8.5-10.1) Total Bilirubin 0.5 mg/dL (0.2-1.0) Aspartate Amino Transf (AST/SGOT) 17 U/L (15-37) Alanine Aminotransferase (ALT/SGPT) 24 U/L (16-63) Alkaline Phosphatase 62 U/L (46-116) Total Protein 7.8 g/dL (6.4-8.2) Albumin 3.0 g/dL (3.4-5.0) Albumin/Globulin Ratio 0.6 (1.0-1.7) Test 06/10/21 06:15 White Blood Count 8.7 x10^3/uL (4.0-11.0) Red Blood Count 5.65 x10^6/uL (4.30-5.70) Hemoglobin 14.8 g/dL (13.0-17.5) Hematocrit 47.0 % (39.0-53.0) Mean Corpuscular Volume 83 fL (79-100) Mean Corpuscular Hemoglobin 26 pg (25-35) Mean Corpuscular Hemoglobin Concent 32 g/dL (31-37) Red Cell Distribution Width 15.8 % (11.5-14.5) Platelet Count 223 x10^3/uL (140-400) Neutrophils (%) (Auto) 75 % (31-73) Lymphocytes (%) (Auto) 14 % (24-48) Monocytes (%) (Auto) 8 % (0-9) Eosinophils (%) (Auto) 3 % (0-3) Basophils (%) (Auto) 1 % (0-3) Neutrophils # (Auto) 6.5 x10^3/uL (1.8-7.7) Lymphocytes # (Auto) 1.2 x10^3/uL (1.0-4.8) Monocytes # (Auto) 0.7 x10^3/uL (0.0-1.1) Eosinophils # (Auto) 0.2 x10^3/uL (0.0-0.7) Basophils # (Auto) 0.0 x10^3/uL (0.0-0.2) Thyroid Stimulating Hormone (TSH) 0.904 uIU/mL (0.358-3.74) Physical Exam Heart: S1S2, RRR Assessment Assessment 1. Atypical CP: possibly from uncontrolled HTN 2. Acute on chronic diastolic CHF: compensated 3. Suspect uncontrolled TAMIKO 4. Substance abuse: UDS + for PCP, cocaine, and marijuana. discussed/encouraged cessation. 5. Accelerated HTN: better 6. HLP 7. Noncompliance 8. Morbid obesity 9. Hx of anaphylaxis on lisinopril Recommendations ASA, statin. Agree with norvasc No BB with cocaine use TTE result pending DASH diet. Consider outpatient ischemic evaluation Discussed lifestyle modification Justicifation of Admission Dx: Justifications for Admission: Justification of Admission Dx: No (obs) ARNAUD RAMSEY INVESTIGATIVE AGENT Jun 10, 2021 11:19
--- NOTE | 2021-06-10 14:25 | NUR ---
Discharge Note: [facility] [address] [place] [address] Discharge instructions and discharge home medications reviewed with Patient and a copy given. All questions have been answered and understanding verbalized. The following instructions and handouts were given: discharge instructions, follow ups, med list, HTN education, DASH diet education, CP education Discontinued lines and drains: Peripheral IV intact. Patient discharged to Home or Self Care with Self via Wheelchair at 1425.
--- NOTE | 2021-06-10 18:29 | CARD ---
MR#: [id number] Date of Study: 06/10/2021 Ordering Physician: JOSE PLUMMER, Referring Physician: JOSE PLUMMER, Petar: Jose Song [facility] APPROVED REPORT EXAM: Two-dimensional and M-mode echocardiogram with Doppler and color Doppler. Other Information Quality : FairHR: 83bpm Rhythm : NSR INDICATION Chest Pain RISK FACTORS Hypertension Obesity 2D DIMENSIONS Left Atrium(2D)3.9 (1.6-4.0cm)IVSd1.5 (0.7-1.1cm) Aortic Root(2D)3.4 (2.0-3.7cm)LVDd4.2 (3.9-5.9cm) LVOT Diameter2.0 (1.8-2.4cm)PWd1.5 (0.7-1.1cm) LVDs2.2 (2.5-4.0cm)FS (%) 48.0 % SV62.7 ml Aortic Valve AoV Peak Joe.142.2cm/sAoV VTI24.4cm AO Peak GR.8.1mmHgLVOT Peak Joe.116.1cm/s AO Mean GR.4mmHgAVA (VMAX)2.53cm2 AI P 1/2 [id number] Mitral Valve MV E Oplvwuox17.7cm/sMV E Peak Gr.2mmHg MV DECEL [id number] A Dzanesan96.7cm/s MV E Mean Gr.1mmHgE/A Ratio1.0 Pulmonary Valve PV Peak Uldepjke861.4cm/s Tricuspid Valve TR P. Atpoivxd110di/sTR Peak Gr.9mmHg Pulmonary Vein S1 Xlgcpleq01.8cm/sD2 Rhorbrik14.8cm/s LEFT VENTRICLE The left ventricle is normal size. There is mild concentric left ventricular hypertrophy. The left ve ntricular systolic function is normal and the ejection fraction is within normal range. Left ventricu lar ejection fraction is 55 to 60%. There is normal LV segmental wall motion. Tissue Doppler imaging reveals abnormal left ventricular diastolic dysfunction. No left ventricle thrombus noted on this miguel dy. There is no ventricular septal defect visualized. There is no left ventricular aneurysm. There is no mass noted in the left ventricle. RIGHT VENTRICLE The right ventricle is normal size. There is normal right ventricular wall thickness. The right ventr icular systolic function is normal. ATRIA The left atrium is borderline dilated. The right atrium size is normal. The interatrial septum is int act with no evidence for an atrial septal defect or patent foramen ovale as noted on 2-D or Doppler i maging. AORTIC VALVE The aortic valve is calcified but opens well. The aortic valve is trileaflet. Doppler and Color Flow revealed mild aortic regurgitation. There is no significant aortic valvular stenosis. There is no aor tic valvular vegetation. MITRAL VALVE The mitral valve is moderately thickened but opens well. There is no evidence of mitral valve prolaps e. There is no mitral valve stenosis. Doppler and Color Flow revealed trace mitral valve regurgitatio n. TRICUSPID VALVE The tricuspid valve is normal in structure and function. Doppler and Color Flow revealed mild tricusp id regurgitation. There is no tricuspid valve prolapse or vegetation. There is no tricuspid valve preeti nosis. PULMONIC VALVE The pulmonary valve is normal in structure and function. Doppler and Color Flow revealed no pulmonic valvular regurgitation. There is no pulmonic valvular stenosis. GREAT VESSELS The aortic root is normal in size. The ascending aorta is normal in size. The pulmonary artery is nor mal. The IVC is normal in size and collapses >50% with inspiration. PERICARDIAL EFFUSION There is no pleural effusion. There is no evidence of significant pericardial effusion. Critical Notification Critical Value: No <Conclusion> The left ventricle is normal size. The left ventricular systolic function is normal and the ejection fraction is within normal range. Left ventricular ejection fraction is 55 to 60%. There is mild concentric left ventricular hypertrophy. Doppler and Color Flow revealed mild aortic regurgitation. There is no significant aortic valvular stenosis. Doppler and Color Flow revealed trace mitral valve regurgitation. Doppler and Color Flow revealed mild tricuspid regurgitation. Signed by : Trevon Wright MD Electronically Approved : 06/10/2021 18:29:15
== END 2021-06-10 14:25 | disposition home or self-care (01) | DRG 291 ==
LOC: ER 09:29 → 6 SOUTH 10:44
PROVIDERS: ADMIT Internal Medicine; ATTEND Internal Medicine
DX: I11.0 Hypertensive heart disease with heart failure (principal); G92.9 Unspecified toxic encephalopathy; I50.33 Acute on chronic diastolic (congestive) heart failure; Z68.42 Body mass index [BMI] 45.0-49.9, adult; E66.01 Morbid (severe) obesity due to excess calories; E78.00 Pure hypercholesterolemia, unspecified; E78.5 Hyperlipidemia, unspecified; F12.10 Cannabis abuse, uncomplicated; F14.10 Cocaine abuse, uncomplicated; F17.210 Nicotine dependence, cigarettes, uncomplicated; Z83.3 Family history of diabetes mellitus; Z87.892 Personal history of anaphylaxis; Z91.19 Patient's noncompliance with other medical treatment and regimen; Z88.0 Allergy status to penicillin; Z88.8 Allergy status to other drugs, medicaments and biological substances; Z20.822 Contact with and (suspected) exposure to COVID-19
CPT/HCPCS: 36415; 71045; 80053; 80061; 80307; 83690; 83880; 84443; 84484; 85025; 87426; 90471; 90686; 93005; 93306; J1940; U0003; U0005; 99285-25; G0378